=== PATIENT | female | born 1955 | race Caucasian/White ===

== ENCOUNTER 2020-10-22 20:20 | Emergency (ER) | payer OTHER ==
[2020-10-22 20:29] VITALS: BP 150/82; PULSE 81; TEMP 98.5; BMI 25.6
[2020-10-22] MEDS ORDERED: DIPHTH,PERTUSS(ACELL),TET 0.5 ML DISP.SYRIN IM ONE ×2 (21:14→21:25)
== END 2020-10-22 22:56 | disposition home or self-care (01) ==
LOC: JER 20:20
PROC: 0HQ0XZZ Repair Scalp Skin, External Approach (ICD-10-PCS; principal; 2020-10-22)
PROC: 3E0234Z Introduction of Serum, Toxoid and Vaccine into Muscle, Percutaneous Approach (ICD-10-PCS; 2020-10-22)
DX: S01.81XA Laceration without foreign body of other part of head, initial encounter (principal)
CPT/HCPCS: 90715; 99284-25

== ENCOUNTER 2020-10-28 10:56 | Emergency (ER) | payer OTHER ==
[2020-10-28 11:15] VITALS: BP 128/79; PULSE 70; TEMP 98; BMI 25.6
== END 2020-10-28 11:25 | disposition home or self-care (01) ==
LOC: JERFT 10:56 → JER 10:56 → JERFT 11:25
DX: Z48.02 Encounter for removal of sutures (principal)
CPT/HCPCS: 99281-25